=== PATIENT | female | born 1985 | race Two or more races ===

== ENCOUNTER 2023-10-18 16:03 | Emergency (ER) | payer MEDICAID ==
[~2023-10-18] VITALS: Ht 162.6 cm; Wt 75.0 kg
[~2023-10-18 16:03] MED LIST: FOLI0.4T14 PO; PREN1TAB22 PO
[2023-10-18 16:07] VITALS: BP 121/70; PULSE 99; RESP 18; TEMP 98.2
== END 2023-10-18 18:03 | disposition left against medical advice (07) ==
LOC: EMS 16:09
DX: K08.89 Other specified disorders of teeth and supporting structures (principal); Z53.21 Procedure and treatment not carried out due to patient leaving prior to being seen by health care provider
CPT/HCPCS: 99281; Z7502